=== PATIENT | male | born 1990 | race Two or more races ===

== ENCOUNTER 2020-02-06 00:28 | Emergency (ER) | payer OTHER ==
[~2020-02-06] VITALS: Ht 175.3 cm; Wt 68.0 kg
--- NOTE | 2020-02-06 00:32 | NUR ---
PT AAOX4. BIBLAPD C/O NECK PAIN. PT PLACED IN BED 12 ON MONITOR AND PULSE OX. MD AT BEDSIDE FOR EVAL. AWAITING ORDERS.
[2020-02-06 00:35] VITALS: BP 127/72
--- NOTE | 2020-02-06 00:48 | NUR ---
RADIOLOGY AT BEDSIDE
--- NOTE | 2020-02-06 01:45 | NUR ---
Patient discharged in stable condition. Written and verbal after care instructions given. Patient verbalizes understanding of instruction. Pt in custody.
== END 2020-02-06 01:46 | disposition home or self-care (01) ==
LOC: ER 00:32
DX: M54.2 Cervicalgia (principal)
CPT/HCPCS: 72040-TC